=== PATIENT | male | born 1955 ===

== ENCOUNTER → 2023-09-20 11:16 | Outpatient (REF) | payer OTHER, SELFPAY | LOC: MRI 3T 11:16 | PROVIDERS: ATTENDING PHYSICIAN Surgery; FAMILY PHYSICIAN Obstetrics & Gynecology | DX: C20 Malignant neoplasm of rectum (principal) | CPT/HCPCS: 72197; A9575 ==

== ENCOUNTER → 2024-01-17 11:32 | Outpatient (REF) | payer OTHER, SELFPAY | LOC: MRI 3T 11:32 | PROVIDERS: ATTENDING PHYSICIAN Surgery | DX: C20 Malignant neoplasm of rectum (principal) | CPT/HCPCS: 72197; A9575 ==

== ENCOUNTER → 2024-01-30 06:27 | Day surgery (SDC) | payer OTHER, SELFPAY | LOC: GI 06:27 | PROVIDERS: ATTENDING PHYSICIAN Surgery | DX: Z12.11 Encounter for screening for malignant neoplasm of colon (principal); C20 Malignant neoplasm of rectum; D12.3 Benign neoplasm of transverse colon; Z85.048 Personal history of other malignant neoplasm of rectum, rectosigmoid junction, and anus | CPT/HCPCS: 45385; 88305 ==

== ENCOUNTER 2024-02-09 06:54 | Inpatient (IN) | payer OTHER, SELFPAY ==
[2024-02-06 08:16] VITALS: BMI 27.7
[2024-02-06 10:13] LABS: Hematocrit 44.8 % (39.0-52.0); Hemoglobin 14.5 g/dL (13.0-18.0); Mean Corp Hgb Conc. 32.4 g/dL (33.0-37.0); Mean Corpuscular Hgb 30.7 pg (27.0-31.0); Mean Corpuscular Volume 94.7 fL (80.0-94.0); Mean Platelet Volume 11.4 fL (7.4-10.4); Platelet Count 172 10^3/uL (130-400); Red Blood Cell Count 4.73 10^6/uL (4.70-6.10); Red Cell Dist. Width 15.7 % (11.5-14.5); White Blood Cell Count 4.9 10^3/uL (4.8-10.8)
[2024-02-06 10:22] LABS: INR 1.11; PT 14.1 Sec (11.4-14.6)
[2024-02-06 10:24] LABS: APTT 31.7 Sec (23.4-35.0)
[2024-02-06 11:02] LABS: Glycohemoglobin (HgbA1c) 5.8 % (4.0-5.6)
[2024-02-06 11:23] LABS: CEA 1.38 ng/ml
--- NOTE | 2024-02-06 14:00 | PTCARENOTE ---
Abn ECG, Dr. Smith notified, no further actions requested.
[2024-02-06 20:28] LABS: ALT (SGPT) 93 U/L (0-50); AST (SGOT) 125 U/L (17-59); Albumin 4.2 g/dl (3.5-5.0); Alkaline Phosphatase 187 U/L (38-126); Blood Urea Nitrogen 9 mg/dl (9-20); Calcium 9.9 mg/dl (8.4-10.2); Carbon Dioxide 16 mmol/L (22-30); Chloride 110 mmol/L (98-107); Estimated Creatinine Clearance 81 ml/min; Glucose 98 mg/dl (70-99); Potassium 4.7 mmol/L (3.5-5.1); Sodium 138 mmol/L (135-145); Total Bilirubin 0.7 mg/dl (0.2-1.3); Total Protein 7.7 g/dl (6.3-8.2); eGFR > 60.00
[2024-02-09] VITALS (13 sets, daily range): BP systolic 15–135; BP diastolic 67–95; BMI 27.7
[2024-02-09] MEDS: ENTEREG 12 MG PO (06:27)
[2024-02-09] MEDS: TYLENOL 1000 MG PO (06:27)
[2024-02-09] MEDS: HEPARIN 5000 UNITS SC (06:27)
[2024-02-09] MEDS: NORMOSOL-R 1000 IV ×2 (06:47→14:25)
--- NOTE | 2024-02-09 13:06 | W.OR.REC1 ---
Rectal Surgery Post Op Note
Immediate Post Op
Primary Surgeon: Nacho Fox MD
Range Management Specialist: MONIQUE Aguilar
Pre-op Diagnosis: Rectal cancer (IIA mid rectal cancer) s/p chemotherapy (PROSPECT)
Post-op Diagnosis: Same
Procedure Performed: Robotic low anterior resection with intracorporeal anastomosis
Anesthesia Type: GET
Specimen / Cultures: Rectosigmoid (open end is distal)
Distal donut
Estimated Blood Loss: 75cc
Complications: None
Operative Findings: No evidence of metastatic disease
Cancer 5cm from anorectal ring
28mm EEA
4cm distal margin
Normal leak test
19 David drain
Patient's son updated
Cancer Report
ASA Score: III
Case Status: Elective
Operation: Low anterior resection
Modailty: Robotic
Location of tumor within rectum: Middle
Height of lower edge of tumor from anal verge: 6cm
Mobilization of splenic flexure: No
Level of ligation of inferior mesenteric artery: Inferior mesenteric artery
Level of ligation of inferior mesenteric vein: Low
Level of rectal transectiondistal to distal edge of tumor: 4cm
Type of Reconstruction: Stapled end-end
Anastomotic testing method(s): Rectal air infusion under pelvic fluid
Creation of stoma: No
En bloc resection: No
Metastectomy: No
Completeness of tumor resection: R0
Interoperative Complications: No
Blood transfusion: No
Total Mesorectal Excision photographed: in operative report
[2024-02-09] MEDS: TORADOL 15 MG IV ×2 (14:01→20:05)
[2024-02-09 14:07] LABS: % Basophils 0.3 % (0-2); % Immature Granulocytes 0.3 % (0-0.5); % Lymphocytes 4.9 % (20.5-51.1); % Neutrophils 91.5 % (42.2-75.2); Absolute Basophils 0.1 10^3/uL (0-0.2); Absolute Immature Granulocytes 0.1 10^3/uL (0-0.05); Absolute Lymphocytes 0.9 10^3/uL (1.2-3.4); Absolute Monocytes 0.5 10^3/uL (0.1-0.6); Absolute Neutrophils 16.1 10^3/uL (1.4-6.5); Hematocrit 38.7 % (39.0-52.0); Hemoglobin 13.2 g/dL (13.0-18.0); Mean Corp Hgb Conc. 34.1 g/dL (33.0-37.0); Mean Corpuscular Hgb 31.4 pg (27.0-31.0); Mean Corpuscular Volume 92.1 fL (80.0-94.0); Mean Platelet Volume 10.5 fL (7.4-10.4); Nucleated Red Blood Cells % 0 % (-); Platelet Count 226 10^3/uL (130-400); White Blood Cell Count 17.6 10^3/uL (4.8-10.8)
[2024-02-09 14:27] LABS: Blood Urea Nitrogen 18 mg/dl (9-20); Calcium 8.4 mg/dl (8.4-10.2); Carbon Dioxide 16 mmol/L (22-30); Chloride 106 mmol/L (98-107); Estimated Creatinine Clearance 65 ml/min; Glucose 151 mg/dl (70-99); Sodium 135 mmol/L (135-145); eGFR > 60.00
--- NOTE | 2024-02-09 15:30 | PTCARENOTE ---
Pt arrived to 2S in bed. Full assessment completed. IVF infusing per order. Abdominal incisions clean, dry and intact glued and open to air. Drain site clean and intact, sanguinous output emptied. Hastings clean and intact draining green tinted urine.
Call trejo within reach and bed in lowest position. Safety maintained. Oriented to room.
[2024-02-09] MEDS: LIPITOR 20 MG PO (17:21)
[2024-02-09] MEDS: TOPROL XL 50 MG PO (17:21)
[2024-02-09] MEDS: TYLENOL 650 MG PO (20:05)
[2024-02-10] MEDS: NORMOSOL-R 1000 IV ×3 (00:19→20:23)
[2024-02-10] MEDS: TYLENOL PO (00:21)
[2024-02-10 03:00] VITALS: BP 119/81
[2024-02-10] MEDS: TORADOL 15 MG IV ×4 (03:10→20:20)
[2024-02-10] MEDS: TYLENOL 650 MG PO ×6 (03:13→23:11)
[2024-02-10 06:00] VITALS: BMI 26.9
[2024-02-10 07:30] VITALS: BP 92/67
[2024-02-10] MEDS: ENTEREG 12 MG PO ×2 (08:02→20:23)
[2024-02-10 08:30] LABS: % Basophils 0.2 % (0-2); % Eosinophils 0.2 % (0-6); % Immature Granulocytes 0.6 % (0-0.5); % Lymphocytes 15.1 % (20.5-51.1); % Monocytes 8.4 % (1.7-9.3); % Neutrophils 75.5 % (42.2-75.2); Absolute Immature Granulocytes 0.1 10^3/uL (0-0.05); Absolute Lymphocytes 1.6 10^3/uL (1.2-3.4); Absolute Monocytes 0.9 10^3/uL (0.1-0.6); Hematocrit 36.7 % (39.0-52.0); Hemoglobin 12.1 g/dL (13.0-18.0); Mean Corpuscular Hgb 30.7 pg (27.0-31.0); Mean Corpuscular Volume 93.1 fL (80.0-94.0); Nucleated Red Blood Cells % 0 % (-); Red Blood Cell Count 3.94 10^6/uL (4.70-6.10); Red Cell Dist. Width 15.9 % (11.5-14.5); White Blood Cell Count 10.6 10^3/uL (4.8-10.8)
[2024-02-10 08:42] LABS: Blood Urea Nitrogen 32 mg/dl (9-20); Calcium 8.5 mg/dl (8.4-10.2); Carbon Dioxide 22 mmol/L (22-30); Chloride 105 mmol/L (98-107); Estimated Creatinine Clearance 59 ml/min; Glucose 114 mg/dl (70-99); Potassium 5.2 mmol/L (3.5-5.1); Sodium 136 mmol/L (135-145); eGFR > 60.00
--- NOTE | 2024-02-10 08:56 | W.PN.GS2 ---
Addendum entered and electronically signed by Chintan Juan MD 02/10/24 09:09:
pt seen and examined with POLITICAL RESEARCH SCIENTIST, agree with progress note
pt feeling well, minimal post op pain
no nausea, states has passed some flatus
no CP/SOB/dizziness
AF VS noted -low normal but asymptomatic
ABD: softly distended and tympanitic, non tender
JOCELYN with SSF - no clots no cameron blood
A/P: POD#1
pain control, NPO x sips/chips given distention/tympany
JOCELYN
okay OOBTC/ambulate as tolerated
singh out POD#2
Original Note:
Today's Communication / Plan
-
Continue IVF
Sips of clears
Assessment / Plan
-
68 yo male with h/o mid rectal ca s/p PROSPECT chemotherapy now POD #1 Robotic low anterior resection
Afebrile with mild tachycardia overnight, now resolved. BP low normal, no hypoxia
Labs stable post op, BUN elevated: suspect vascularly dry
Abd distended but passing some flatus
--NPO with sips/chips
--Continue IVF
--OOB/Ambulate
--IS while awake
--Trend labs
--Hold lisinopril, continue home dose of Toprol
--Multimodal analgesics
--Lovenox 40mg sq for VTE ppx
Subjective Data
-
Date of Service: February 10, 2024
Patient seen and examined at bedside with Dr. Juan. Denies n/v. Passing a little flatus. Pain well managed, discomfort with movement.
Objective Data
-
Intake and Output
02/09/24 02/10/24 02/11/24
06:59 06:59 06:59
Intake Total 1750 / 1750
Output Total 820 / 820
Balance 930 / 930
Intake:
IV fluids (Total) 1750 / 1750
Normosal 150 / 150
Output:
Drain Output (Total) 120 / 120
Right Abdomen Oscar-Lowe 120 / 120
Urine, Singh 700 / 700
Vital Signs
Temp Pulse Resp BP Pulse Ox
98.2 F 85 19 92/67 96
02/10/24 07:30 02/10/24 08:01 02/10/24 07:30 02/10/24 08:01 02/10/24 07:30
Lab Results
02/10/24 06:30
02/10/24 06:30
Calcium 8.5 mg/dl (8.4-10.2) 02/10/24 06:30
Total Bilirubin 0.7 mg/dl (0.2-1.3) 02/06/24 08:10
Total Bilirubin Cancelled 02/06/24 08:10
AST 125 U/L (17-59) H 02/06/24 08:10
AST Cancelled 02/06/24 08:10
ALT 93 U/L (0-50) H 02/06/24 08:10
ALT Cancelled 02/06/24 08:10
Alkaline Phosphatase 187 U/L (38-126) H 02/06/24 08:10
Alkaline Phosphatase Cancelled 02/06/24 08:10
Total Protein 7.7 g/dl (6.3-8.2) 02/06/24 08:10
Total Protein Cancelled 02/06/24 08:10
Albumin 4.2 g/dl (3.5-5.0) 02/06/24 08:10
Albumin Cancelled 02/06/24 08:10
Physical Exam
-
NAD
ABD soft, mild incisional tenderness, moderately distended and tympanitic
JOCELYN with SSF. Incisions well approximated with intact glue, no erythema
Singh with clear, cassie urine
[2024-02-10 11:26] VITALS: BP 94/60
[2024-02-10 15:20] VITALS: BP 120/75
[2024-02-10] MEDS: LOVENOX 40 MG SC (17:20)
[2024-02-10] MEDS: TOPROL XL 50 MG PO (17:21)
[2024-02-10] MEDS: LIPITOR 20 MG PO (17:21)
[2024-02-10 23:00] VITALS: BP 120/79
[2024-02-11] MEDS: TORADOL 15 MG IV ×4 (02:41→20:15)
[2024-02-11] MEDS: TYLENOL 650 MG PO ×6 (03:33→23:17)
[2024-02-11 06:00] VITALS: BMI 27.0
[2024-02-11] MEDS: NORMOSOL-R 1000 IV (06:06)
[2024-02-11 07:13] LABS: Hematocrit 34.4 % (39.0-52.0); Hemoglobin 11.7 g/dL (13.0-18.0); Mean Corpuscular Hgb 31.4 pg (27.0-31.0); Mean Corpuscular Volume 92.2 fL (80.0-94.0); Red Blood Cell Count 3.73 10^6/uL (4.70-6.10); Red Cell Dist. Width 15.6 % (11.5-14.5); White Blood Cell Count 10.2 10^3/uL (4.8-10.8)
[2024-02-11 07:15] LABS: Blood Urea Nitrogen 30 mg/dl (9-20); Calcium 8.1 mg/dl (8.4-10.2); Carbon Dioxide 25 mmol/L (22-30); Chloride 106 mmol/L (98-107); Estimated Creatinine Clearance 72 ml/min; Glucose 76 mg/dl (70-99); Potassium 3.9 mmol/L (3.5-5.1); Sodium 137 mmol/L (135-145); eGFR > 60.00
[2024-02-11] MEDS: ENTEREG 12 MG PO ×2 (07:54→20:15)
[2024-02-11 07:55] LABS: Mean Platelet Volume 10.7 fL (7.4-10.4); Platelet Count 153 10^3/uL (130-400)
[2024-02-11 08:05] VITALS: BP 124/82
--- NOTE | 2024-02-11 09:01 | CM ---
Alert awake oriented patient who lives with his son Denzel who lives in a 2 story home with 2 step to enter and 9 steps to bed and bathroom. He is independent in driving and in all activities of daily living.He was offered VN he declined need.Pt said
his son will drive him home.No adaptive devices.
No VN hx / No SNF history
Pharmacy [facility]
PCP DR Herrera
PLAN Home Declined VN
--- NOTE | 2024-02-11 09:59 | W.PN.GS2 ---
Today's Communication / Plan
-
`
Assessment / Plan
-
Assessment: 68 yo male with h/o mid rectal ca s/p PROSPECT chemotherapy now POD #2 Robotic low anterior resection
AF VSS
Doing well postop
Signs of returning GI function
Plan: Clear liquids advance to full liquids in the evening as tolerated
cap IV fluids
--OOB/Ambulate
--IS while awake
--Hold lisinopril, continue home dose of Toprol
--Multimodal analgesics
--Lovenox 40mg sq for VTE ppx
Subjective Data
-
Date of Service: February 11, 2024
Patient seen and examined
Minimal postoperative incisional discomfort/pain
Sitting up comfortably in chair at bedside.
Tolerating sips and chips. No nausea, no vomiting, no abdominal bloating or distention
Passing flatus regularly and possibly a bit of loose stool
Objective Data
-
Intake and Output
02/10/24 02/11/24 02/12/24
06:59 06:59 06:59
Intake Total 1750 / 1750 2640 / 2640
Output Total 820 / 820 2230 / 2230
Balance 930 / 930 410 / 410
Intake:
Oral fluids 240 / 240
IV fluids (Total) 1750 / 1750 2400 / 2400
Normosal 150 / 150
Output:
Drain Output (Total) 120 / 120 80 / 80
Right Abdomen Oscar-Lowe 120 / 120 80 / 80
Urine, Hastings 700 / 700 2150 / 2150
Other:
Number of approximated MODERATE 1
amounts of urine
Vital Signs
Temp Pulse Resp BP Pulse Ox
98.3 F 80 17 124/82 96
02/11/24 08:05 02/11/24 08:05 02/11/24 08:05 02/11/24 08:05 02/11/24 08:05
Lab Results
02/11/24 06:21
02/11/24 06:21
Calcium 8.1 mg/dl (8.4-10.2) L 02/11/24 06:21
Total Bilirubin 0.7 mg/dl (0.2-1.3) 02/06/24 08:10
Total Bilirubin Cancelled 02/06/24 08:10
AST 125 U/L (17-59) H 02/06/24 08:10
AST Cancelled 02/06/24 08:10
ALT 93 U/L (0-50) H 02/06/24 08:10
ALT Cancelled 02/06/24 08:10
Alkaline Phosphatase 187 U/L (38-126) H 02/06/24 08:10
Alkaline Phosphatase Cancelled 02/06/24 08:10
Total Protein 7.7 g/dl (6.3-8.2) 02/06/24 08:10
Total Protein Cancelled 02/06/24 08:10
Albumin 4.2 g/dl (3.5-5.0) 02/06/24 08:10
Albumin Cancelled 02/06/24 08:10
Physical Exam
-
NAD AAOx3
ABD: Soft, nondistended, mild tenderness at incision sites. Incisions with glue dressings. No erythema, no drainage, no open wounds.
Right-sided JOCELYN with serosanguineous fluid.
[2024-02-11 15:05] VITALS: BP 121/75
[2024-02-11] MEDS: TOPROL XL 50 MG PO (17:34)
[2024-02-11] MEDS: LIPITOR 20 MG PO (17:35)
[2024-02-11] MEDS: LOVENOX 40 MG SC (17:35)
[2024-02-11 23:00] VITALS: BP 128/83
[2024-02-12] MEDS: TORADOL 15 MG IV (01:27)
[2024-02-12] MEDS: TYLENOL 650 MG PO ×4 (03:12→17:21)
[2024-02-12 06:00] VITALS: BMI 26.5
[2024-02-12 07:05] VITALS: BP 132/85
[2024-02-12] MEDS: ENTEREG 12 MG PO (08:55)
[2024-02-12] MEDS: TORADOL IV ×2 (08:56→13:25)
--- NOTE | 2024-02-12 09:03 | W.PN.CRS1 ---
Today's Communication / Plan
-
Advance to low residue
If tolerating, okay for DC
Assessment/Plan
-
POD 3 s/p robotic LAR for mid rectal cancer
AFVSS
No labs today
� Advance to low residue
� Continue pain control with Tylenol, Toradol, Dilaudid as needed; continue Entereg
� Continue DVT PPx with Lovenox
� JOCELYN removed at bedside this morning
� Recommend OOB/IS
� Continue home medications
Dispo�if tolerating low residue, okay for discharge home this afternoon
Subjective Data
Subjective Data
Date of Service: February 12, 2024
No overnight events.
Pain controlled.
Denies nausea/vomiting. Tolerating fulls.
+flatus +BMs (described as dark and multiple, but improving) +voiding
Pt is OOB.
Objective Data
-
Vital Signs
Temp Pulse Resp BP Pulse Ox
98.2 F 79 18 132/85 97
02/12/24 07:05 02/12/24 07:05 02/12/24 07:05 02/12/24 07:05 02/12/24 07:05
Intake & Output
02/11/24 02/12/24 02/13/24
06:59 06:59 06:59
Intake Total 2640 / 2640 720 / 720
Output Total 2230 / 2230 115 / 115
Balance 410 / 410 605 / 605
Intake:
Oral fluids 240 / 240 720 / 720
IV fluids (Total) 2400 / 2400
Output:
Drain Output (Total) 80 / 80 115 / 115
Right Abdomen Oscar-Lowe 80 / 80 115 / 115
Urine, Hastings 2149 / 2149
Other:
Number of approximated SMALL 4
amounts of urine
Number of approximated MODERATE 4
amounts of urine
Lab Results
02/11/24 06:21
02/11/24 06:21
Physical Exam
-
General: No Acute Distress and AOx3
HEENT: Grossly Normal
Abdomen: Soft, Non Distended, Tender (Appropriately tender near incisions) and Other (JOCELYN-115 mL serosanguineous, removed today at bedside)
Neurological: Other (No gross deficits, moving all extremities)
Skin: Warm and Dry
Wound: No Signs of Infection, Dressing in Place (Dermabond) and No Skin Erythema
--- NOTE | 2024-02-12 13:25 | W.DS.TRANS ---
DC Summary - Post Acute Care Registered Nurse
-
Discharge Instructions:
Sleep Apnea Risk Intermediate
Discharge Diagnosis/Procedures robotic low anterior resection
Diet Low Residue
Activity No strenuous activity
Additional Activity No lifting over 10lbs (gallon of milk)
Driving Restrictions No driving for 1 week
Bathing Restrictions OK to Shower
Wound Care Allow glue to naturally fall off.
Instructions: Low Fiber Diet
Stand-Alone Forms:
Changes to Home Medications: No
Discharge Medications:
DC Medications w/original date entered in [employer]
atorvastatin 20 mg tablet 20 mg PO QPM High Cholesterol 02/01/24
lisinopril 5 mg tablet 5 mg PO DAILY Blood Clot Prevention/Tx 02/01/24
metoprolol succinate 50 mg tablet,extended release 24 hr 50 mg PO QPM Blood Pressure 02/01/24
multivitamin 1 tab PO DAILY Supplement 02/01/24
Home Medication Changes
Pending Results: Yes
Additional Pending Results:
pathology
--- NOTE | 2024-02-12 14:18 | CM ---
Patient has been medically cleared for discharge to home with no additional skilled services. Patient declined HH. Family will transport to home.
[2024-02-12 15:10] VITALS: BP 129/82
[2024-02-12] MEDS: LOVENOX 40 MG SC (17:21)
[2024-02-12] MEDS: LIPITOR 20 MG PO (17:21)
[2024-02-12] MEDS: TOPROL XL 50 MG PO (17:21)
== END 2024-02-12 18:36 | disposition home or self-care (01) | DRG 334 ==
LOC: 2 SOUTH 06:54
PROVIDERS: Registered Nurse; ADMITTING PHYSICIAN Surgery; FAMILY PHYSICIAN Internal Medicine
PROC: 0DTP4ZZ Resection of Rectum, Percutaneous Endoscopic Approach (ICD-10-PCS; 2024-02-09)
DX: C20 Malignant neoplasm of rectum (principal)
CPT/HCPCS: 88304; 88309; 36415; 80048; 80053; 82378; 83036; 85025; 85027; 85610; 85730; 86850; 86900; 86901; 93005; J1335